=== PATIENT | female | born 1960 | race Caucasian/White ===

== ENCOUNTER 2017-06-28 16:05 | Emergency (ER) | payer OTHER, BC ==
[~2017-06-28] VITALS: Ht 165.1 cm; Wt 78.5 kg
[~2017-06-28 16:05] MED LIST: ARIMIDEX PO; CALCIUM 500 +1 EAC5 PO; Hydrocodone-Apap 5-325 Tablet PO; MOTRIN 600 MG PO
[2017-06-28 16:40] LABS: ABSOLUTE NEUTROPHILS 6.8 thou/uL (1.4-8.2); BASOPHILS 0.6 % (0.0-2.0); EOSINOPHILS 1.5 % (0.0-3.0); HEMATOCRIT 36.7 % (37.0-47.0); HEMOGLOBIN 12.8 gm/dL (12.0-15.0); LYMPHOCYTES 19.3 % (24.0-44.0); MCH 33.4 pg (26.0-34.0); MCHC 34.9 g/dL (28.0-37.0); MCV 95.5 fL (80.0-100.0); MONOCYTES 5.7 % (1.0-8.0); PLATELET COUNT 251 thou/uL (150-400); POLYS 72.9 % (36.0-66.0); RBC 3.84 mil/uL (4.20-5.00); RDW 12.3 % (10.5-14.5); WBC 9.3 thou/uL (4.0-11.0)
[2017-06-28 16:47] LABS: CALCIUM 9.6 mg/dL (8.5-10.1); POTASSIUM 3.4 mmol/L (3.5-5.1)
[2017-06-28] MEDS ORDERED: NORCO 5-325 TA1 EACH PO (17:26)
[2017-06-28 17:49] LABS: APTT 28.5 Seconds (24.5-32.8); PROTIME 10.3 Seconds (9.3-11.4)
== END 2017-06-28 17:42 | disposition home or self-care (01) ==
LOC: ER 16:05
PROVIDERS: Nurse Practitioner
DX: S50.01XA Contusion of right elbow, initial encounter (principal); M25.511 Pain in right shoulder; Z85.3 Personal history of malignant neoplasm of breast; Z88.1 Allergy status to other antibiotic agents; W18.39XA Other fall on same level, initial encounter; Y93.01 Activity, walking, marching and hiking; Y92.89 Other specified places as the place of occurrence of the external cause; Y99.8 Other external cause status